=== PATIENT | male | born 1980 | race African-American/Black ===

== ENCOUNTER 2017-01-04 18:17 | Emergency (ER) | payer OTHER ==
[~2017-01-04] VITALS: Ht 185.4 cm; Wt 159.7 kg
[2017-01-04] MEDS ORDERED: TRAMADOL HCL50 MG PO (22:28)
[2017-01-04] MEDS ORDERED: KEFLEX500 MG PO ×2 (22:28)
[2017-01-04 22:34] VITALS: BP 155/78
== END 2017-01-04 22:35 | disposition home or self-care (01) ==
LOC: EME 18:17
PROC: 0H9NXZZ Drainage of Left Foot Skin, External Approach (ICD-10-PCS; principal; 2017-01-04)
DX: L03.116 Cellulitis of left lower limb (principal); L02.612 Cutaneous abscess of left foot; F17.200 Nicotine dependence, unspecified, uncomplicated
CPT/HCPCS: 73630; 87070; 87075; 87077; 87147; 87186; 87205; 99281; 99284